=== PATIENT | male | born 1970 | race Caucasian/White ===

== ENCOUNTER 2019-09-25 11:28 | Emergency (ER) | payer MEDICAID ==
--- NOTE | 2019-09-25 11:34 | NUR ---
Too incoherent and uncooperative to assess traige, found down on street, patient violent and swearing, security stqanding by.
[2019-09-25] MEDS ORDERED: ziprasidone IM 20mg inj **IM only IM ONE (11:35)
== END 2019-09-25 12:05 | disposition left against medical advice (07) ==
LOC: ER 11:29
DX: F10.129 Alcohol abuse with intoxication, unspecified (principal); Z59.0 Homelessness; Z88.8 Allergy status to other drugs, medicaments and biological substances; Y90.9 Presence of alcohol in blood, level not specified
CPT/HCPCS: 99283; J3486

== ENCOUNTER 2019-10-07 14:26 | Emergency (ER) | payer MEDICAID ==
--- NOTE | 2019-10-07 14:33 | NUR ---
pt. was asked to move over to the gurney from ems gurney. pt pretenden to be asleep. when ems and myself moved pt. over with a lift. pt. started yelling " i will beat your ass old man, point his finger in the face of ems" i asked pt. to be quiet and let us do our job. pt. said "shut up you fat ass bitch".. i told him that his behavior brought him to the er. we did not go looking for him. the nurse came in to triage the pt. she stated i am going to take your tempeture. when she put the prob in his mouth he started to mumble. the nurse asked him not to talk she was trying to get a tempeture. pt. stated "fuck you". i told the pt. that his behavior was unexceptable. " he called me a fat fucking cunt". "get this fucking shit off of me i am getting out of here" i told him i would show him the door. pt. cused all the way down the [address] and out the ambulance bay doors, with out assist, gait was strong and straight. we had to go out into the parking lot and remove his iv, cath intact. dr. edmond was just outside the room and watched the pt. ambulate from department.
== END 2019-10-07 14:57 | disposition left against medical advice (07) ==
LOC: ER 14:27
DX: F10.929 Alcohol use, unspecified with intoxication, unspecified (principal); R00.0 Tachycardia, unspecified; Z59.0 Homelessness; Z88.6 Allergy status to analgesic agent; Y90.9 Presence of alcohol in blood, level not specified
CPT/HCPCS: 99283